=== PATIENT | male | born 1945 | race Caucasian/White ===

== ENCOUNTER 2019-12-17 09:54 | Emergency (ER) | payer MEDICARE, BC ==
[~2019-12-17] VITALS: Ht 185.4 cm; Wt 85.0 kg
[~2019-12-17 09:54] MED LIST: ASPI-1265 PO; ATOR10TA PO; CARV3.1289 PO; CLOP75TA35 PO; NITR0.4T51 SL; NO HOME MEDS; PANT-47 PO
[2019-12-17 11:15] VITALS: BP 151/83
== END 2019-12-17 12:07 | disposition home or self-care (01) ==
LOC: ER 09:54
DX: Z04.1 Encounter for examination and observation following transport accident (principal); V87.7XXA Person injured in collision between other specified motor vehicles (traffic), initial encounter; Y93.89 Activity, other specified; Y92.89 Other specified places as the place of occurrence of the external cause; Y99.8 Other external cause status
CPT/HCPCS: 99281

== ENCOUNTER 2019-12-24 17:39 | Emergency (ER) | payer MEDICARE, BC ==
[~2019-12-24] VITALS: Ht 185.4 cm; Wt 115.0 kg
[2019-12-24] MEDS ORDERED: CLIN150C8 PO (18:53)
[2019-12-24 19:09] VITALS: BP 146/74
== END 2019-12-24 19:07 | disposition home or self-care (01) ==
LOC: ER 17:41
DX: S41.121A Laceration with foreign body of right upper arm, initial encounter (principal); S41.122A Laceration with foreign body of left upper arm, initial encounter; Z79.82 Long term (current) use of aspirin; Z79.899 Other long term (current) drug therapy; W34.00XA Accidental discharge from unspecified firearms or gun, initial encounter; Y93.89 Activity, other specified; Y92.89 Other specified places as the place of occurrence of the external cause; Y99.8 Other external cause status
CPT/HCPCS: 73060; 99284

== ENCOUNTER 2024-01-31 11:18 | Emergency (ER) | payer MEDICARE, BC ==
[~2024-01-31] VITALS: Ht 182.9 cm; Wt 42.9 kg
[~2024-01-31 11:18] MED LIST changes: +CLIN-214 PO; +CLOP75TA34 PO; -CLOP75TA35 PO
[2024-01-31 11:20] VITALS: BP 125/73; PULSE 74; TEMP 98.3; O2SAT 96
[2024-01-31 14:08] VITALS: RESP 16
[2024-01-31 14:20] LABS: BASOPHILS % (AUTO) 0.4 % (0-1); EOSINOPHILS # (AUTO) 0.1 X10'3 (0-0.9); EOSINOPHILS % (AUTO) 1.4 % (0-6); HEMOGLOBIN 15.8 g/dl (14.0-17.9); LYMPHOCYTES # (AUTO) 5.9 X10'3 (1.1-4.8); LYMPHOCYTES % (AUTO) 54.8 % (21-51); MEAN CORPUSCULAR HEMOGLOBIN 30.3 PG (27.0-31.0); MEAN CORPUSCULAR HGB CONC 33.6 g/dL (33.0-36.5); MEAN CORPUSCULAR VOLUME 90.2 FL (78-98); MEAN PLATELET VOLUME 8.9 FL (7.4-10.4); MONOCYTES # (AUTO) 0.7 X10'3 (0-0.9); MONOCYTES % (AUTO) 6.3 % (2-12); NEUTROPHILS % (AUTO) 37.1 % (42-75); PLATELET COUNT 219 X10'3 (140-440); RED BLOOD COUNT 5.21 X10'6 (4.70-6.10); RED CELL DISTRIBUTION WIDTH 13.1 % (11.5-14.5); WHITE BLOOD COUNT 10.7 X10'3 (4.5-11.0)
[2024-01-31 14:27] LABS: BILIRUBIN,URINE NEGATIVE (Neg); CLARITY,URINE CLEAR (Clear); COLOR,URINE YELLOW (Yellow); GLUCOSE, URINE >=1000 mg/dl (Neg); KETONES,URINE NEGATIVE (Neg); LEUKOCYTE ESTERASE ,URINE NEGATIVE (Neg); NITRITES, URINE NEGATIVE (Neg); OCCULT BLOOD,URINE NEGATIVE (Neg); PH,URINE 5.5 (4.8-8.0); PROTEIN,URINE NEGATIVE (Neg); UROBILINOGEN,URINE 0.2 E.U/dL (0.2-1.0)
[2024-01-31 14:35] LABS: UA COLLECTION TYPE CLN CATCH MIDSTREAM
[2024-01-31 14:38] LABS: SQUAMOUS EPITHELIAL CELL,UR FEW /LPF (FEW)
[2024-01-31 14:39] LABS: BACTERIA,URINE NONE SEEN /HPF (Neg); RBC,URINE NONE SEEN /HPF (0-2); WBC,URINE 0-4 /HPF (0-4)
[2024-01-31] MEDS: normal saline 1000ML IV soln IVB ONE (14:48)
[2024-01-31 14:53] LABS: ALANINE AMINOTRANSFERASE 31 U/L (12-78); ALBUMIN 3.7 G/DL (3.4-5.0); ALKALINE PHOSPHATASE 58 IU/L (46-116); ANION GAP 8 (8-16); ASPARTATE AMINO TRANSFERASE 18 U/L (10-37); BLOOD UREA NITROGEN 15 MG/DL (7-18); BUN/CREATININE RATIO 12.8 (10.0-20.0); CALCIUM 8.9 MG/DL (8.5-10.1); CHLORIDE 98 MMOL/L (99-107); CREATININE 1.17 MG/DL (0.60-1.10); GLUCOSE 344 MG/DL (70-104); POTASSIUM 4.3 MMOL/L (3.5-5.1); SODIUM 133 MMOL/L (135-145); TOTAL PROTEIN 7.5 G/DL (6.4-8.2); eCRCL 33 ML/MIN; eGFR 61 ML/MIN
[2024-01-31 14:57] LABS: LIPASE 27 U/L (16-77); PRO BRAIN NATRIURETIC PEPTIDE 738 PG/ML (0-450)
[2024-01-31 15:04] LABS: TOTAL CELLS COUNTED 100
[2024-01-31 15:06] LABS: LARGE PLATELETS FEW; PLATELET ESTIMATE NORMAL
[2024-01-31 15:12] LABS: SMUDGE CELLS 1+
[2024-01-31] MEDS ORDERED: METF-438 PO (15:23)
[2024-01-31] MEDS: insulin regular, human 10 units/0.1 ml syringe SQ ONE (16:12)
== END 2024-01-31 18:41 | disposition home or self-care (01) ==
LOC: ER 11:18
DX: E11.65 Type 2 diabetes mellitus with hyperglycemia (principal); Z79.82 Long term (current) use of aspirin; Z79.1 Long term (current) use of non-steroidal anti-inflammatories (NSAID); Z79.2 Long term (current) use of antibiotics; Z79.84 Long term (current) use of oral hypoglycemic drugs
CPT/HCPCS: 36415; 71045; 80053; 81001; 82948; 83605; 83690; 83880; 84145; 84484; 85007; 85025; 87040; 99284; J1815; J7030

== ENCOUNTER 2024-08-29 06:11 | Day surgery (SDC) | payer MEDICARE, OTHER ==
[~2024-08-29] VITALS: Ht 182.9 cm; Wt 79.7 kg
[2024-08-29] VITALS (30 sets, daily range): BP systolic 113–145; BP diastolic 69–90; PULSE 70–94; RESP 14–20; TEMP 98.6; O2SAT 92–98
[~2024-08-29 06:11] MED LIST changes: +METF-438 PO
[2024-08-29] MEDS ORDERED: LORazepam 0.5 MG tablet PO PRN (06:40)
[2024-08-29] MEDS ORDERED: diphenhydrAMINE 25mg capsule PO PRN (06:40)
[2024-08-29] MEDS ORDERED: normal saline 1,000 ML IV SCH (06:40)
[2024-08-29 07:18] LABS: BASOPHILS # (AUTO) 0.1 X10'3 (0-0.2); BASOPHILS % (AUTO) 0.7 % (0-1); EOSINOPHILS # (AUTO) 0.2 X10'3 (0-0.9); HEMATOCRIT 40.5 % (42.0-52.0); HEMOGLOBIN 13.8 g/dl (14.0-17.9); LYMPHOCYTES # (AUTO) 3.5 X10'3 (1.1-4.8); LYMPHOCYTES % (AUTO) 40.2 % (21-51); MEAN CORPUSCULAR HEMOGLOBIN 30.7 PG (27.0-31.0); MEAN CORPUSCULAR HGB CONC 34.1 g/dL (33.0-36.5); MEAN PLATELET VOLUME 8.1 FL (7.4-10.4); MONOCYTES # (AUTO) 0.6 X10'3 (0-0.9); MONOCYTES % (AUTO) 6.9 % (2-12); NEUTROPHILS # (AUTO) 4.4 X10'3 (1.8-7.7); NEUTROPHILS % (AUTO) 50.2 % (42-75); PLATELET COUNT 261 X10'3 (140-440); RED CELL DISTRIBUTION WIDTH 12.8 % (11.5-14.5); WHITE BLOOD COUNT 8.8 X10'3 (4.5-11.0)
[2024-08-29] MEDS ORDERED: verapamil 2.5 mg/ml inj IV ONE (07:21)
[2024-08-29] MEDS ORDERED: iohexol 350 MG/ML 50ML vial IV ONE (07:21)
[2024-08-29] MEDS ORDERED: iohexol 350MG/ML 100ml bottle IV ONE ×3 (07:21→08:59)
[2024-08-29] MEDS ORDERED: heparin 1,000unit/ml 10ml vial 10 ML ONE (07:21)
[2024-08-29] MEDS ORDERED: LIDOcaine 1% (10mg/ml) 2ml vial ONE (07:21)
[2024-08-29] MEDS ORDERED: nitroGLYCERIN 500mcg/5mL D5W 5 ML IV ONE ×3 (07:21→09:17)
[2024-08-29] MEDS ORDERED: ASPI-611 PO (07:22)
[2024-08-29] MEDS ORDERED: INSU100I31 SQ (07:22)
[2024-08-29] MEDS ORDERED: EMPA25TA PO (07:22)
[2024-08-29] MEDS ORDERED: METF-438 PO (07:22)
[2024-08-29] MEDS ORDERED: CLOP75TA33 PO ×2 (07:22→10:49)
[2024-08-29] MEDS ORDERED: FURO20TA4 PO (07:22)
[2024-08-29] MEDS ORDERED: SPIR25TA5 PO (07:22)
[2024-08-29] MEDS ORDERED: SACU1TAB PO (07:22)
[2024-08-29] MEDS ORDERED: NITR0.4T48 (07:22)
[2024-08-29] MEDS ORDERED: TRAZ-251 PO (07:22)
[2024-08-29] MEDS ORDERED: ATOR-2 PO (07:22)
[2024-08-29] MEDS ORDERED: CARV3.122 PO (07:22)
[2024-08-29 07:45] LABS: APTT 27 SECONDS (22-32); INR 1.1 INR; PROTHROMBIN TIME 11.9 SECONDS (9.0-12.0)
[2024-08-29] MEDS ORDERED: fentaNYL/PF 50MCG/1 ML 2ML syringe ONE (07:50)
[2024-08-29] MEDS ORDERED: midazolam 1 mg/ML 2ml injection ONE (07:50)
[2024-08-29 08:19] LABS: TOTAL CARBON DIOXIDE 27.2 MMOL/L (24-32)
[2024-08-29 08:20] LABS: ALBUMIN 3.1 G/DL (3.4-5.0); ANION GAP 8 (8-16); BLOOD UREA NITROGEN 20 MG/DL (7-18); BUN/CREATININE RATIO 20.8 (10.0-20.0); CALCIUM 8.6 MG/DL (8.5-10.1); CHLORIDE 105 MMOL/L (99-107); CREATININE 0.96 MG/DL (0.60-1.10); GLUCOSE 156 MG/DL (70-104); POTASSIUM 4.1 MMOL/L (3.5-5.1); SODIUM 140 MMOL/L (135-145); eCRCL 71 ML/MIN; eGFR 76 ML/MIN
[2024-08-29] MEDS ORDERED: heparin 25,000 UNIT/250ml bag 250 ML IV ONE (08:50)
[2024-08-29] MEDS ORDERED: clopidogrel 300mg tablet ONE (09:23)
[2024-08-29] MEDS ORDERED: aspirin 325mg tablet ONE (09:33)
[2024-08-29] MEDS ORDERED: aspirin 81mg tab.chew PO ONE (10:30)
[2024-08-29] MEDS ORDERED: clopidogrel 300mg tablet PO ONE (10:30)
[2024-08-29] MEDS ORDERED: HYDROcodone/acetaminophen 5mg/325mg tablet PO PRN (10:35)
[2024-08-29] MEDS ORDERED: HYDROcodone/acetaminophen 10/325mg tab PO PRN (10:35)
[2024-08-29] MEDS ORDERED: ASPI-1071 PO (10:49)
[2024-08-29] MEDS ORDERED: ROSU40TA PO (10:49)
[2024-08-29] MEDS ORDERED: metoprolol tartrate 1mg/ml inj IV SCH (13:00)
[2024-08-29] MEDS ORDERED: nitroGLYCERIN 0.4mg SUBLingual tab SL PRN (13:00)
[2024-08-29] MEDS: DOBUTamine-DoBUTrex 500mg/D5W 250 ML IV SCH (17:13)
[2024-08-30 08:26] LABS: ISTAT HGB MIX 13.3 g/dl (14.0-17.9); ISTAT Hct MIX 39 %PCV (42-52); ISTAT O2 SATURATION MIX VENOUS 55 % (60-80); ISTAT SOURCE BLNK
== END 2024-08-29 17:55 | disposition home or self-care (01) ==
LOC: SSTAY O 06:11
PROVIDERS: ATTEND Internal Medicine Cardiovascular Disease
DX: I35.0 Nonrheumatic aortic (valve) stenosis (principal); I25.10 Atherosclerotic heart disease of native coronary artery without angina pectoris; T82.855A Stenosis of coronary artery stent, initial encounter; I11.0 Hypertensive heart disease with heart failure; E11.9 Type 2 diabetes mellitus without complications; E78.5 Hyperlipidemia, unspecified; I50.22 Chronic systolic (congestive) heart failure; I42.0 Dilated cardiomyopathy; I45.6 Pre-excitation syndrome; I49.3 Ventricular premature depolarization; Z95.5 Presence of coronary angioplasty implant and graft; Z79.82 Long term (current) use of aspirin; Z79.899 Other long term (current) drug therapy; Z90.49 Acquired absence of other specified parts of digestive tract; Z98.890 Other specified postprocedural states; Z98.49 Cataract extraction status, unspecified eye; Z80.9 Family history of malignant neoplasm, unspecified; Z82.49 Family history of ischemic heart disease and other diseases of the circulatory system; Y83.8 Other surgical procedures as the cause of abnormal reaction of the patient, or of later complication, without mention of misadventure at the time of the procedure; Y92.89 Other specified places as the place of occurrence of the external cause
CPT/HCPCS: 36415; 80048; 82803; 85014; 85025; 85347; 85610; 85730; 93005; 93351; 93458; A4615; A6258; A6402; C1725; C1751; C1769; C1874; C1894; C9600; C9601; J1250; J1644; J2003; J2250; J3010; J3490; J7030; Q9967; Z7610; 99152; 99153

== ENCOUNTER 2024-09-02 09:46 | Day surgery (SDC) | payer MEDICARE, OTHER ==
[2024-09-02] VITALS (12 sets, daily range): BP systolic 108–148; BP diastolic 55–92; PULSE 67–81; RESP 12–16; TEMP 97.8; O2SAT 96–98
[~2024-09-02] VITALS: Ht 182.9 cm; Wt 75.7 kg
[~2024-09-02 09:46] MED LIST changes: +ASPI-1071 PO; +ASPI-611 PO; +ATOR-2 PO; +CARV3.122 PO; +CLOP75TA33 PO; +EMPA25TA PO; +FURO20TA4 PO; +INSU100I31 SQ; +NITR0.4T48; -NO HOME MEDS; +ROSU40TA PO; +SACU1TAB PO; +SPIR25TA5 PO; +TRAZ-251 PO
[2024-09-02] MEDS ORDERED: ROSU40TA89 PO (10:21)
[2024-09-02] MEDS ORDERED: LORazepam 0.5 MG tablet PO PRN (10:25)
[2024-09-02] MEDS ORDERED: normal saline 1,000 ML IV SCH (10:25)
[2024-09-02] MEDS ORDERED: verapamil 2.5 mg/ml inj IV ONE (10:38)
[2024-09-02] MEDS ORDERED: LIDOcaine 1% 30ml preserv. free vial ONE (10:38)
[2024-09-02] MEDS ORDERED: midazolam 1 mg/ML 2ml injection ONE (10:38)
[2024-09-02] MEDS ORDERED: fentaNYL/PF 50MCG/1 ML 2ML syringe ONE (10:39)
[2024-09-02] MEDS ORDERED: nitroGLYCERIN 500mcg/5mL D5W 10 ML IV ONE (10:39)
[2024-09-02] MEDS ORDERED: heparin 25,000 UNIT/250ml bag 250 ML IV ONE (10:39)
[2024-09-02] MEDS ORDERED: iohexol 350MG/ML 100ml bottle IV ONE (10:39)
[2024-09-02] MEDS ORDERED: heparin 1,000unit/ml 10ml vial 10 ML ONE (10:39)
[2024-09-02 10:41] LABS: BASOPHILS % (AUTO) 0.2 % (0-1); EOSINOPHILS # (AUTO) 0.2 X10'3 (0-0.9); EOSINOPHILS % (AUTO) 1.4 % (0-6); HEMATOCRIT 46.9 % (42.0-52.0); LYMPHOCYTES # (AUTO) 5.5 X10'3 (1.1-4.8); LYMPHOCYTES % (AUTO) 47.5 % (21-51); MEAN CORPUSCULAR HEMOGLOBIN 30.8 PG (27.0-31.0); MEAN CORPUSCULAR HGB CONC 34.2 g/dL (33.0-36.5); MEAN CORPUSCULAR VOLUME 90.2 FL (78-98); MEAN PLATELET VOLUME 7.7 FL (7.4-10.4); MONOCYTES # (AUTO) 0.7 X10'3 (0-0.9); MONOCYTES % (AUTO) 5.7 % (2-12); NEUTROPHILS # (AUTO) 5.3 X10'3 (1.8-7.7); NEUTROPHILS % (AUTO) 45.2 % (42-75); PLATELET COUNT 345 X10'3 (140-440); RED CELL DISTRIBUTION WIDTH 12.9 % (11.5-14.5); WHITE BLOOD COUNT 11.6 X10'3 (4.5-11.0)
[2024-09-02 11:34] LABS: ALBUMIN 3.6 G/DL (3.4-5.0); ANION GAP 9 (8-16); BLOOD UREA NITROGEN 16 MG/DL (7-18); BUN/CREATININE RATIO 13.8 (10.0-20.0); CALCIUM 8.8 MG/DL (8.5-10.1); CHLORIDE 104 MMOL/L (99-107); CREATININE 1.16 MG/DL (0.60-1.10); GLUCOSE 126 MG/DL (70-104); SODIUM 141 MMOL/L (135-145); TOTAL CARBON DIOXIDE 28.5 MMOL/L (24-32); eCRCL 57 ML/MIN; eGFR 61 ML/MIN
[2024-09-02 12:07] LABS: INR 1.3 INR
[2024-09-02] MEDS ORDERED: nitroGLYCERIN 500mcg/5mL D5W 5 ML IV ONE (12:39)
[2024-09-02] MEDS ORDERED: clopidogrel 300mg tablet ONE (12:56)
[2024-09-02] MEDS ORDERED: aspirin 325mg tablet ONE (13:04)
[2024-09-02] MEDS ORDERED: normal saline 1000ml 1,000 ML IV SCH (13:50)
== END 2024-09-02 18:50 | disposition home or self-care (01) ==
LOC: SSTAY O 09:46
PROVIDERS: ATTEND Internal Medicine Cardiovascular Disease
DX: I35.0 Nonrheumatic aortic (valve) stenosis (principal); I42.0 Dilated cardiomyopathy; I49.1 Atrial premature depolarization; I45.6 Pre-excitation syndrome; I25.82 Chronic total occlusion of coronary artery; I11.0 Hypertensive heart disease with heart failure; I50.22 Chronic systolic (congestive) heart failure; I25.2 Old myocardial infarction; I25.119 Atherosclerotic heart disease of native coronary artery with unspecified angina pectoris; E78.5 Hyperlipidemia, unspecified; E11.9 Type 2 diabetes mellitus without complications; Z79.82 Long term (current) use of aspirin; Z79.84 Long term (current) use of oral hypoglycemic drugs; Z79.899 Other long term (current) drug therapy; Z98.890 Other specified postprocedural states; Z90.49 Acquired absence of other specified parts of digestive tract; Z82.49 Family history of ischemic heart disease and other diseases of the circulatory system; Z88.8 Allergy status to other drugs, medicaments and biological substances
CPT/HCPCS: 80048; 82948; 85025; 85347; 85610; 93005; A6258; C1725; C1751; C1769; C1874; C1894; C9600; C9601; J1644; J2003; J2250; J3010; J3490; J7030; Q9967; Z7610; 93454; 99152; 99153

== ENCOUNTER 2024-09-27 10:59 | Outpatient (CLI) | payer MEDICARE, OTHER ==
[~2024-09-27 10:59] MED LIST changes: -ASPI-1071 PO; -ASPI-1265 PO; -ATOR-2 PO; -ATOR10TA PO; -CARV3.1289 PO; -CLIN-214 PO; -CLOP75TA34 PO; +IODIXANOL 320 MG/ML INFUS..BTL 100ML IV ONE; -NITR0.4T51 SL; -PANT-47 PO; -ROSU40TA PO; +ROSU40TA89 PO
[2024-09-27 11:32] LABS: EOSINOPHILS # (AUTO) 0.2 X10'3 (0-0.9); MONOCYTES # (AUTO) 0.5 X10'3 (0-0.9); PLATELET COUNT 202 X10'3 (140-440); RED BLOOD COUNT 4.65 X10'6 (4.70-6.10)
[2024-09-27 11:34] LABS: BASOPHILS % (AUTO) 0.3 % (0-1); EOSINOPHILS % (AUTO) 2.3 % (0-6); HEMATOCRIT 41.9 % (42.0-52.0); HEMOGLOBIN 13.9 g/dl (14.0-17.9); LYMPHOCYTES # (AUTO) 3.6 X10'3 (1.1-4.8); LYMPHOCYTES % (AUTO) 50.7 % (21-51); MEAN CORPUSCULAR HEMOGLOBIN 29.9 PG (27.0-31.0); MEAN CORPUSCULAR HGB CONC 33.2 g/dL (33.0-36.5); MEAN PLATELET VOLUME 8.2 FL (7.4-10.4); MONOCYTES % (AUTO) 7.4 % (2-12); NEUTROPHILS # (AUTO) 2.8 X10'3 (1.8-7.7); NEUTROPHILS % (AUTO) 39.3 % (42-75); RED CELL DISTRIBUTION WIDTH 13.7 % (11.5-14.5); WHITE BLOOD COUNT 7.1 X10'3 (4.5-11.0)
[2024-09-27 11:45] LABS: APTT 29 SECONDS (22-32); INR 1.1 INR; PROTHROMBIN TIME 11.4 SECONDS (9.0-12.0)
[2024-09-27 11:47] LABS: ALANINE AMINOTRANSFERASE 47 U/L (12-78); ALBUMIN 3.5 G/DL (3.4-5.0); ALKALINE PHOSPHATASE 94 IU/L (46-116); ANION GAP 4 (8-16); ASPARTATE AMINO TRANSFERASE 21 U/L (10-37); BILIRUBIN,TOTAL 0.5 MG/DL (0.1-1.0); BLOOD UREA NITROGEN 21 MG/DL (7-18); BUN/CREATININE RATIO 21.4 (10.0-20.0); CALCIUM 8.8 MG/DL (8.5-10.1); CHLORIDE 105 MMOL/L (99-107); CREATININE 0.98 MG/DL (0.60-1.10); GLUCOSE 147 MG/DL (70-104); POTASSIUM 4.7 MMOL/L (3.5-5.1); SODIUM 140 MMOL/L (135-145); TOTAL CARBON DIOXIDE 30.8 MMOL/L (24-32); eGFR 74 ML/MIN
== END 2024-09-27 23:59 | disposition home or self-care (01) ==
LOC: RAD 10:59
PROVIDERS: ATTEND Internal Medicine Cardiovascular Disease
DX: J90 Pleural effusion, not elsewhere classified (principal); I35.0 Nonrheumatic aortic (valve) stenosis; R06.02 Shortness of breath; I65.29 Occlusion and stenosis of unspecified carotid artery; J84.10 Pulmonary fibrosis, unspecified; R59.0 Localized enlarged lymph nodes; I51.7 Cardiomegaly
CPT/HCPCS: 71046; 71275; 74174; 75572; 80053; 85025; 85610; 85730; 93880; Q9967

== ENCOUNTER 2024-10-24 06:33 | Inpatient (IN) | payer MEDICARE, OTHER ==
[2024-10-17 12:12] LABS: BASOPHILS % (AUTO) 0.2 % (0-1); EOSINOPHILS # (AUTO) 0.1 X10'3 (0-0.9); MEAN PLATELET VOLUME 8.3 FL (7.4-10.4); MONOCYTES # (AUTO) 0.6 X10'3 (0-0.9)
[2024-10-17 12:14] LABS: BILIRUBIN,URINE NEGATIVE (Neg); CLARITY,URINE CLEAR (Clear); COLOR,URINE YELLOW (Yellow); EOSINOPHILS % (AUTO) 1.1 % (0-6); GLUCOSE, URINE NEGATIVE (Neg); KETONES,URINE NEGATIVE (Neg); LEUKOCYTE ESTERASE ,URINE NEGATIVE (Neg); LYMPHOCYTES # (AUTO) 3.1 X10'3 (1.1-4.8); LYMPHOCYTES % (AUTO) 37.7 % (21-51); MEAN CORPUSCULAR HEMOGLOBIN 30.1 PG (27.0-31.0); MEAN CORPUSCULAR HGB CONC 33.4 g/dL (33.0-36.5); MEAN CORPUSCULAR VOLUME 90.1 FL (78-98); MONOCYTES % (AUTO) 7.7 % (2-12); NEUTROPHILS # (AUTO) 4.3 X10'3 (1.8-7.7); NEUTROPHILS % (AUTO) 53.3 % (42-75); NITRITES, URINE NEGATIVE (Neg); OCCULT BLOOD,URINE NEGATIVE (Neg); PRE OP HEMATOCRIT 41.8 % (42.0-52.0); PRE OP PLATELET COUNT 199 X10'3 (140-440); PRE OP WHITE BLOOD COUNT 8.1 10'3 (4.8-10.8); PROTEIN,URINE TRACE mg/dl (Neg); RED BLOOD COUNT 4.64 X10'6 (4.70-6.10); RED CELL DISTRIBUTION WIDTH 14.3 % (11.5-14.5); UROBILINOGEN,URINE 0.2 E.U/dL (0.2-1.0)
[2024-10-17 12:16] LABS: UA COLLECTION TYPE CLN CATCH MIDSTREAM
[2024-10-17 12:25] LABS: BACTERIA,URINE FEW /HPF (Neg); CAL OXALATE CRYSTALS 4+ /HPF (NEGATIVE); RBC,URINE NONE SEEN /HPF (0-2); SQUAMOUS EPITHELIAL CELL,UR NONE SEEN /LPF (FEW); WBC,URINE 0-4 /HPF (0-4)
[2024-10-17 12:35] LABS: HEMOGLOBIN A1C 9.1 % (4.5-6.2); PRE OP INR 1.1 INR; PRE OP PROTIME 11.5 SECONDS (9.0-12.0)
[2024-10-17 12:47] LABS: ALBUMIN 3.4 G/DL (3.4-5.0); ALBUMIN/GLOBULIN RATIO 0.9 (1.1-1.5); ALKALINE PHOSPHATASE 73 IU/L (46-116); BLOOD UREA NITROGEN 24 MG/DL (7-18); BUN/CREATININE RATIO 21.4 (10.0-20.0); CALCIUM 8.8 MG/DL (8.5-10.1); CHLORIDE 100 MMOL/L (99-107); CREATININE 1.12 MG/DL (0.60-1.10); PRE OP ALT 25 U/L (30-65); PRE OP ANION GAP 7 (8-16); PRE OP AST 15 U/L (10-37); PRE OP BILIRUB, TOTAL 0.9 MG/DL (0.0-1.0); PRE OP POTASSIUM 4.4 MMOL/L (3.4-5.1); PRE OP SODIUM 137 MMOL/L (135-145); PRO BRAIN NATRIURETIC PEPTIDE 6060 PG/ML (0-450); TOTAL CARBON DIOXIDE 30.2 MMOL/L (24-32); TOTAL PROTEIN 7.4 G/DL (6.4-8.2); eGFR 64 ML/MIN
[2024-10-17 12:59] LABS: PRE OP GLUCOSE 225 MG/DL (70-104)
[~2024-10-24] VITALS: Ht 182.9 cm; Wt 81.3 kg
[2024-10-24] VITALS (21 sets, daily range): BP systolic 108–147; BP diastolic 52–87; PULSE 68–81; RESP 11–22; TEMP 97.4–97.9; O2SAT 91–100
[2024-10-24] MEDS: ceFAZolin 2gm in dextrose, iso 50 ML IV ONE (05:30)
[~2024-10-24 06:33] MED LIST changes: -ASPI-611 PO; +ASPI81TA52 PO; +CHOL100017 PO; -IODIXANOL 320 MG/ML INFUS..BTL 100ML IV ONE; +LACT1CAP65 PO; +MULT1TAB71 PO; -NITR0.4T48; +NITR0.4T48 PO; +RESVERATROL PO; +UBID50CA PO; +VITA1CAP PO; +ondansetron/PF 4mg/2ml inj IV PRN; +protamine sulfate 10mg/ml inj. ONE
[2024-10-24] MEDS: ringers solution, lacted 1,000 ML IV SCH ×2 (07:40→13:08)
[2024-10-24] MEDS: aspirin 325mg tablet PO ONE (07:40)
[2024-10-24] MEDS: famotidine 20mg tablet PO ONE (07:40)
[2024-10-24] MEDS: VANCOMYCIN/WATER FOR INJ (PEG) 1.5GM/300 ML IVPB IV ONE (07:40)
[2024-10-24] MEDS: hydrocortisone sod succ/PF 100mg/2ml inj. IV ONE (08:36)
[2024-10-24] MEDS ORDERED: meperidine/PF 100mg/ml syringe IV PRN (08:45)
[2024-10-24] MEDS ORDERED: hydrALAZINE 20mg/ml inj. IV PRN ×2 (08:45→11:35)
[2024-10-24] MEDS ORDERED: HYDROmorphone/PF 0.2 MG/ML SYRINGE IV PRN ×2 (08:45)
[2024-10-24] MEDS ORDERED: morphine 2 MG/ML inj. syringe IV PRN (08:45)
[2024-10-24] MEDS ORDERED: ondansetron/PF 4mg/2ml inj IV PRN ×2 (08:45→11:35)
[2024-10-24] MEDS ORDERED: acetaminophen 1,000mg/100ml IV 100 ML IV PRN (08:45)
[2024-10-24] MEDS ORDERED: proCHLORperazine 10 MG/2 ml inj IV PRN ×2 (08:45→11:35)
[2024-10-24] MEDS ORDERED: morphine 4 MG/ML inj SYRINge IV PRN (08:45)
[2024-10-24] MEDS ORDERED: labetalol 20mg/4ml (5mg/ml) syringe IV PRN ×2 (08:45→11:35)
[2024-10-24] MEDS ORDERED: LIDOcaine 1% (10mg/ml) 2ml vial ONE (09:42)
[2024-10-24] MEDS ORDERED: LIDOcaine 1% 30ml preserv. free vial ONE (10:23)
[2024-10-24] MEDS ORDERED: heparin 1,000 UNITS/NS 500ml 1,500 ML ONE (10:23)
[2024-10-24] MEDS ORDERED: iohexol 350MG/ML 100ml bottle IV ONE (10:23)
[2024-10-24] MEDS ORDERED: traZODone 50mg tablet PO PRN (10:25)
[2024-10-24] MEDS ORDERED: nitroGLYCERIN 0.4mg SUBLingual tab SL PRN (10:25)
[2024-10-24] MEDS ORDERED: fentaNYL/PF 50MCG/1 ML 2ML syringe ONE (10:38)
[2024-10-24] MEDS ORDERED: midazolam 1 mg/ML 2ml injection ONE (10:38)
[2024-10-24] MEDS ORDERED: NORepinephrine 8mg/ 250ml NS 250 ML IV ONE (10:42)
[2024-10-24] MEDS ORDERED: propofol inj 20 ML IV ONE ×2 (11:22)
[2024-10-24] MEDS ORDERED: heparin 1,000unit/ml 10ml vial 10 ML ONE (11:22)
[2024-10-24] MEDS ORDERED: potassium Cl 20mEq/100mL bag 100 ML IV PRN (11:35)
[2024-10-24] MEDS ORDERED: HYDROcodone/acetaminophen 5mg/325mg tablet PO PRN (11:35)
[2024-10-24] MEDS ORDERED: diphenhydrAMINE 25mg capsule PO PRN (11:35)
[2024-10-24] MEDS ORDERED: potassium CL 10mEq/100ml bag 100 ML IV PRN (11:35)
[2024-10-24] MEDS ORDERED: potassium Cl 40MEQ/270ML bag 250 ML IV PRN (11:35)
[2024-10-24] MEDS ORDERED: potassium Cl 40MEQ/1/2NS 520ml 520 ML IV PRN (11:35)
[2024-10-24] MEDS ORDERED: potassium Cl 20 mEq SR tablet PO PRN (11:35)
[2024-10-24] MEDS ORDERED: docusate sod 100mg capsule PO PRN (11:35)
[2024-10-24] MEDS ORDERED: acetaminophen 325mg tablet PO PRN (11:35)
[2024-10-24] MEDS ORDERED: magnesium sulf-water 4G/100mL 100 ML IV PRN (11:35)
[2024-10-24] MEDS ORDERED: DEXTROSE 15 GM of carb/4 tabs (each vial/BOTTLE has 4 tablets) PO PRN ×2 (11:35)
[2024-10-24] MEDS ORDERED: glucagon, human recombinant 1mg kit SUBCUT PRN (11:35)
[2024-10-24] MEDS ORDERED: dextrose 50%-water 50ml dispensing syringe IV PRN ×2 (11:35)
[2024-10-24] MEDS ORDERED: ALPRAZolam 0.25mg tablet PO PRN (11:35)
[2024-10-24] MEDS ORDERED: pantoprazole 40mg Tablet.DR PO PRN (11:35)
[2024-10-24] MEDS ORDERED: magnesium sulf-water 2g/50mL 50 ML IV PRN (11:35)
[2024-10-24] MEDS: INSULIN LISPRO 100 UNIT/ML INSULN.PEN MULTI-DOSE SQ SCH (12:00)
[2024-10-24] MEDS ORDERED: INSULIN LISPRO 100 UNIT/ML INSULN.PEN MULTI-DOSE SQ SCH (12:00)
[2024-10-24] MEDS: nitroPRUSSIDE sod inj. 50 MG in dextrose 5%-water 248 ML IV SCH (12:05)
[2024-10-24] MEDS: DOCUMENT DATE & TIME OF BETA-BLOCKER PO ONE (13:07)
[2024-10-24] MEDS: phenylephrine inj 50 MG in normal saline 250ml IV solN IV SCH (13:07)
[2024-10-24] MEDS: NORepinephrine 8mg/ 250ml NS 250 ML IV SCH (13:07)
[2024-10-24] MEDS: normal saline 1000ml 1,000 ML IV SCH (15:00)
[2024-10-24] MEDS: sod chloride 0.9% 10ml flush syringe IV SCH (16:00)
[2024-10-24] MEDS: ceFAZolin 1GM/D5W- ADD-VANTAGE 50 ML IV SCH (17:35)
[2024-10-24] MEDS: carVEDilol 3.125mg tablet PO SCH (20:20)
[2024-10-25 02:00] VITALS: BP 124/79; PULSE 64; RESP 15; TEMP 98.1; O2SAT 95
[2024-10-25 04:45] VITALS: BP 124/79; PULSE 64; RESP 15; TEMP 98.1; O2SAT 95
[2024-10-25 06:00] VITALS: BP 92/66; PULSE 62; RESP 20; TEMP 97.7; O2SAT 95
[2024-10-25 06:42] LABS: BASOPHILS % (AUTO) 0.3 % (0-1); EOSINOPHILS # (AUTO) 0.1 X10'3 (0-0.9); EOSINOPHILS % (AUTO) 0.7 % (0-6); HEMATOCRIT 41.2 % (42.0-52.0); HEMOGLOBIN 13.7 g/dl (14.0-17.9); LYMPHOCYTES # (AUTO) 3.1 X10'3 (1.1-4.8); LYMPHOCYTES % (AUTO) 27.4 % (21-51); MEAN CORPUSCULAR HEMOGLOBIN 30.1 PG (27.0-31.0); MEAN CORPUSCULAR HGB CONC 33.3 g/dL (33.0-36.5); MEAN CORPUSCULAR VOLUME 90.4 FL (78-98); MEAN PLATELET VOLUME 8.6 FL (7.4-10.4); MONOCYTES # (AUTO) 1.1 X10'3 (0-0.9); MONOCYTES % (AUTO) 9.9 % (2-12); NEUTROPHILS % (AUTO) 61.7 % (42-75); PLATELET COUNT 187 X10'3 (140-440); RED BLOOD COUNT 4.55 X10'6 (4.70-6.10); RED CELL DISTRIBUTION WIDTH 15.2 % (11.5-14.5); WHITE BLOOD COUNT 11.3 X10'3 (4.5-11.0)
[2024-10-25 07:16] LABS: ALANINE AMINOTRANSFERASE 18 U/L (12-78); ALBUMIN 2.9 G/DL (3.4-5.0); ALBUMIN/GLOBULIN RATIO 0.9 (1.1-1.5); ALKALINE PHOSPHATASE 54 IU/L (46-116); ANION GAP 7 (8-16); ASPARTATE AMINO TRANSFERASE 13 U/L (10-37); BILIRUBIN,TOTAL 1.2 MG/DL (0.1-1.0); BLOOD UREA NITROGEN 21 MG/DL (7-18); CALCIUM 8.2 MG/DL (8.5-10.1); CHLORIDE 104 MMOL/L (99-107); GLUCOSE 134 MG/DL (70-104); MAGNESIUM 2.1 MG/DL (1.5-2.4); PRO BRAIN NATRIURETIC PEPTIDE 6193 PG/ML (0-450); SODIUM 137 MMOL/L (135-145); TOTAL CARBON DIOXIDE 26.5 MMOL/L (24-32); eCRCL 68 ML/MIN; eGFR 72 ML/MIN
[2024-10-25] MEDS: sacubitril/valsartan 24mg-26mg tablet PO SCH (08:00)
[2024-10-25] MEDS ORDERED: aspirin 81mg, enteric-coated 1 TAB TABLET.DR PO SCH (08:00)
[2024-10-25] MEDS ORDERED: non-formulary drug (Ubidecarenone (Coenzyme Q10) 1 TAB) PO SCH (08:00)
[2024-10-25] MEDS: furosemide 20MG tablet PO SCH (08:13)
[2024-10-25] MEDS: multivitamins, therapeutics tablet PO SCH (08:14)
[2024-10-25] MEDS: aspirin 81mg tab.chew PO SCH (08:14)
[2024-10-25] MEDS: lactobacillus rhamnosus 10,000 MMU CELLS/CAPSULE PO SCH (08:14)
[2024-10-25] MEDS: vitamin B comp w/Vit. C tab 1 TAB TABLET PO SCH (08:14)
[2024-10-25] MEDS: clopidogrel 75mg tablet PO SCH (08:14)
[2024-10-25] MEDS: cholecalciferol (vitamin D3) 1,000 unit (25mcg) tablet PO SCH (08:14)
[2024-10-25 11:26] VITALS: BP 130/86; PULSE 78; RESP 22; O2SAT 97
[2024-10-25 15:06] VITALS: BP 139/88; PULSE 85; RESP 14; O2SAT 98
== END 2024-10-25 15:20 | disposition home or self-care (01) | DRG 266 ==
LOC: PAS IN 06:33 → PCU 3S 13:36 → S STAY 10-25 11:13
PROVIDERS: ADMIT Internal Medicine Cardiovascular Disease; ATTEND Internal Medicine Cardiovascular Disease
PROC: B41D1ZZ Fluoroscopy of Aorta and Bilateral Lower Extremity Arteries using Low Osmolar Contrast (ICD-10-PCS; 2024-10-24)
PROC: 03HY32Z Insertion of Monitoring Device into Upper Artery, Percutaneous Approach (ICD-10-PCS; 2024-10-24)
PROC: 02RF38Z Replacement of Aortic Valve with Zooplastic Tissue, Percutaneous Approach (ICD-10-PCS; principal; 2024-10-24 10:31)
DX: I35.0 Nonrheumatic aortic (valve) stenosis (principal); Z00.6 Encounter for examination for normal comparison and control in clinical research program; I50.23 Acute on chronic systolic (congestive) heart failure; I25.10 Atherosclerotic heart disease of native coronary artery without angina pectoris; E78.00 Pure hypercholesterolemia, unspecified; E11.9 Type 2 diabetes mellitus without complications; Z79.84 Long term (current) use of oral hypoglycemic drugs; Z88.8 Allergy status to other drugs, medicaments and biological substances
CPT/HCPCS: 33361; 36415; 71045; 76937; 80053; 81001; 82948; 83036; 83735; 83880; 85025; 85347; 85610; 85730; 86885; 86900; 86901; 86920; 93005; 93308; A4615; A4618; A6258; A6449; C1756; C1760; C1769; C1894; G0378; J0690; J1644; J1720; J1815; J2003; J2250; J2371; J2704; J2720; J3010; J3372; J3490; J7030; J7040; J7050; J7060; J7120; Q9967